=== PATIENT | female | born 1990 | race Caucasian/White ===

== ENCOUNTER 2023-10-10 14:01 | Outpatient (CLI) | payer OTHER ==
[~2023-10-10 14:01] MED LIST: CARAFATE SU1 G/10 ML PO; GILTUSS; LEVSIN/SL0.125 MG PO; PHENERGAN25 MG PO; PRENATALES; PROTONIX40 MG PO
== END 2023-10-10 14:02 | disposition home or self-care (01) ==
LOC: PRENATAL 14:01
PROVIDERS: ATTEND Obstetrics & Gynecology Maternal & Fetal Medicine
DX: O35.9XX0 Maternal care for (suspected) fetal abnormality and damage, unspecified, not applicable or unspecified (principal); O35.3XX0 Maternal care for (suspected) damage to fetus from viral disease in mother, not applicable or unspecified; O44.02 Complete placenta previa NOS or without hemorrhage, second trimester; O34.219 Maternal care for unspecified type scar from previous cesarean delivery; O36.1920 Maternal care for other isoimmunization, second trimester, not applicable or unspecified; O09.522 Supervision of elderly multigravida, second trimester; Z3A.19 19 weeks gestation of pregnancy

== ENCOUNTER 2024-01-10 13:27 | Outpatient (CLI) | payer OTHER | END 2024-01-10 13:29 | disposition home or self-care (01) | LOC: PRENATAL 13:27 | PROVIDERS: ATTEND Obstetrics & Gynecology Maternal & Fetal Medicine | DX: O26.849 Uterine size-date discrepancy, unspecified trimester (principal); O36.8199 Decreased fetal movements, unspecified trimester, other fetus; O34.219 Maternal care for unspecified type scar from previous cesarean delivery; O36.1999 Maternal care for other isoimmunization, unspecified trimester, other fetus; O09.529 Supervision of elderly multigravida, unspecified trimester; Z3A.32 32 weeks gestation of pregnancy ==